=== PATIENT | female | born 1990 | race African-American/Black ===

== ENCOUNTER 2017-01-27 20:47 | Emergency (ER) | payer BC ==
[2017-01-27 21:02] VITALS: TEMP 98; BMI 21.1
--- NOTE | 2017-01-27 21:36 | PDOC ---
History of Present Illness - General History Source: Patient, Old Records Exam Limitations: No Limitations - History of Present Illness Initial Comments: 01/27/17 21:59 The patient is a 26 year old female, 10 weeks F1 L1 who presents to the emergency department today for further evaluation of vomiting for one week. The patient states that she has been unable to hold any food or liquids down other than water. The patient has an appointment to see her OBGYN tomorrow. The patient denies any alleviating or exacerbating factors. She reports associated lightheadedness, chills, nausea, and weakness. She denies fever, diarrhea, tremors, and headache. The patient notes that she did not have any complications with her first and that her child is in good health. PCP: Dr. Mittal [phone] PAST SURGICAL HISTORY: Left eye surgery FAMILY HISTORY: No pertinent history reported SOCIAL HISTORY: None reported <Montrell Anderson - Last Filed: 01/27/17 21:59> <Willi Ayala - Last Filed: 01/27/17 23:37> - General Chief Complaint: Nausea/Vomiting Stated Complaint: 10 WEEK PREG, VOMITING Time Seen by Provider: 01/27/17 21:34 Past History <Montrell Anderson - Last Filed: 01/27/17 21:59> - Past Medical History Asthma: No Cancer: No Cardiac Disorders: No Diabetes: No HTN: No Seizures: No Thyroid Disease: No - Psycho/Social/Smoking Cessation Hx Anxiety: No Suicidal Ideation: No Smoking History: Never smoked Have you smoked in the past 12 months: No Hx Alcohol Use: No Drug/Substance Use Hx: No Substance Use Type: None Hx Substance Use Treatment: No <Willi Ayala - Last Filed: 01/27/17 23:37> - Past Medical History Allergies/Adverse Reactions: Allergies Allergy/AdvReac Type Severity Reaction Status Date / Time No Known Allergies Allergy Verified 02/13/15 06:52 Home Medications: Ambulatory Orders Vit/Iron Fumarate/FA [ Tablet] 1 tab PO DAILY 10/28/14 Review of Systems - Review of Systems Able to Perform ROS?: Yes Comments:: 01/27/17 21:59 GENERAL/CONSTITUTIONAL: (+) Weakness, chills. No fever HEAD, EYES, EARS, NOSE AND THROAT: No change in vision. No ear pain or discharge. No sore throat. CARDIOVASCULAR: No chest pain or shortness of breath. RESPIRATORY: No cough, wheezing, or hemoptysis. GASTROINTESTINAL: (+) Nausea, vomiting, lightheadedness. No diarrhea or constipation. GENITOURINARY: No dysuria, frequency, or change in urination. MUSCULOSKELETAL: No joint or muscle swelling or pain. No neck or back pain. SKIN: No rash NEUROLOGIC: No headache, vertigo, loss of consciousness, or change in strength/ sensation. ENDOCRINE: No increased thirst. No abnormal weight change. HEMATOLOGIC/LYMPHATIC: No anemia, easy bleeding, or history of blood clots. ALLERGIC/IMMUNOLOGIC: No hives or skin allergy. <Montrell Anderson - Last Filed: 01/27/17 21:59> *Physical Exam - Vital Signs Last Vital Signs Temp Pulse Resp BP Pulse Ox 98 F 70 16 117/70 99 01/27/17 20:55 01/27/17 20:55 01/27/17 20:55 01/27/17 20:55 01/27/17 20:55 - Physical Exam Comments: 01/27/17 21:59 GENERAL: Awake, alert, and fully oriented, in no acute distress HEAD: No signs of trauma EYES: PERRLA, EOMI, sclera anicteric, conjunctiva clear ENT: Auricles normal inspection, hearing grossly normal, nares patent, oropharynx clear without exudates. Moist mucosa NECK: Normal ROM, supple, no lymphadenopathy, JVD, or masses LUNGS: Breath sounds equal, clear to auscultation bilaterally. No wheezes, and no crackles HEART: Regular rate and rhythm, normal S1 and S2, no murmurs, rubs or gallops ABDOMEN: (+) Mild diffuse tenderness on palpation, Soft, normoactive bowel sounds. No guarding, no rebound. No masses EXTREMITIES: Normal range of motion, no edema. No clubbing or cyanosis. No cords, erythema, or tenderness NEUROLOGICAL: Cranial nerves II through XII grossly intact. Normal speech, normal gait SKIN: Warm, Dry, normal turgor, no rashes or lesions noted. <Montrell Anderson - Last Filed: 01/27/17 21:59> - Vital Signs Last Vital Signs Temp Pulse Resp BP Pulse Ox 98 F 70 16 117/70 99 05/04/17 20:55 01/27/17 20:55 01/27/17 20:55 01/27/17 20:55 01/27/17 20:55 <Willi Ayala - Last Filed: 01/27/17 23:37> ED Treatment Course - LABORATORY CBC & Chemistry Diagram: 01/27/17 22:18 01/27/17 22:18 <Willi Ayala - Last Filed: 01/27/17 23:37> *DC/Admit/Observation/Transfer - Attestations Scribe Attestion: 01/27/17 21:59 Documentation prepared by Montrell Anderson, acting as medical claims representative for Willi Ayala DO. <Montrell Anderson - Last Filed: 01/27/17 21:59> - Discharge Dispostion Admit: No - Attestations Physician Attestion: 01/27/17 21:35 I, Dr. Willi Ayala, attest that this document has been prepared under my direction and personally reviewed by me in its entirety. I further attest, that it accurately reflects all work, treatment, procedures and medical decision -making performed by me. <Willi Ayala - Last Filed: 01/27/17 23:37> Diagnosis at time of Disposition: Intractable vomiting Qualifiers: Nausea presence: with nausea - Discharge Dispostion Disposition: HOME Condition at time of disposition: Improved - Referrals Referrals: Michell Mittal CNM [Primary Care Provider] - - Patient Instructions Additional Instructions: Continue the reglan and see your OB Doctor tomorrow as planned.
[2017-01-27] MEDS ORDERED: SODIUM CHLORIDE 1,000 ML IV STA (21:47)
[2017-01-27] MEDS ORDERED: ONDANSETRON *ODT* 4 MG TABLET SL ONE (22:01)
[2017-01-27] MEDS ORDERED: ONDANSETRON *ODT* 4 MG TABLET ONE (22:18)
[2017-01-27 22:37] LABS: BASOPHIL 0.4 % (0-2.0); EOSINOPHIL 3.5 % (0-4.5); MCH 30.5 pg (25.7-33.7); MCHC 33.1 g/dl (32.0-36.0); MEAN CELL VOLUME 92.3 fl (80-96); MEAN PLT VOLUME 10.5 fl (7.5-11.1); NEUTROPHILS 66.4 % (42.8-82.8); PLATELET COUNT 172 K/MM3 (134-434); RDW 14.5 % (11.6-15.6); WHITE BLOOD COUNT 13.2 K/mm3 (4.0-10.0)
[2017-01-27 23:09] LABS: ALBUMIN 3.3 g/dl (3.4-5.0); ANION GAP 8 (8-16); BILIRUBIN,TOTAL 0.6 mg/dL (0.2-1.0); CO2 25 mmol/L (21-32); CREATININE 0.6 mg/dL (0.55-1.02); GLUCOSE,RANDOM 71 mg/dL (74-106); SGOT/AST 14 U/L (15-37); SGPT/ALT 16 U/L (12-78); TOT PROT 6.7 g/dl (6.4-8.2)
[2017-01-27 23:10] LABS: ALK PHOS 50 U/L (45-117)
[2017-01-27 23:53] LABS: URINE APPEARANCE CLEAR; URINE BILIRUBIN NEGATIVE (NEGATIVE); URINE COLOR LTYELLOW; URINE GLUCOSE (UA) NEGATIVE (NEGATIVE); URINE KETONE 2+ (NEGATIVE); URINE LEUK ESTERASE NEGATIVE (NEGATIVE); URINE NITRITE NEGATIVE (NEGATIVE); URINE PROTEIN NEGATIVE (NEGATIVE); URINE UROBILINOGEN NEGATIVE E.U./dl (0.2-1.0)
[2017-01-27 23:54] LABS: URINE BLOOD 1+ (NEGATIVE)
[2017-01-27 23:56] LABS: URINE BACTERIA RARE /hpf (NONE SEEN); URINE MUCUS RARE; URINE RBC 2 /hpf (0-3); URINE WBC 1 /hpf (3-5)
[2017-01-28 00:12] VITALS: BP 110/72; PULSE 82
== END 2017-01-27 23:59 | disposition home or self-care (01) ==
LOC: JER 20:47
PROC: 3E0337Z Introduction of Electrolytic and Water Balance Substance into Peripheral Vein, Percutaneous Approach (ICD-10-PCS; principal; 2017-01-27)
DX: O26.891 Other specified pregnancy related conditions, first trimester (principal); O21.0 Mild hyperemesis gravidarum; Z3A.10 10 weeks gestation of pregnancy; R11.10 Vomiting, unspecified
CPT/HCPCS: 36415; 80053; 81003; 81015; 83690; 85025; 99283-25